=== PATIENT | female | born 1945 | race Caucasian/White ===

== ENCOUNTER 2021-01-06 19:59 | Emergency (ER) | payer OTHER, MEDICARE ==
[~2021-01-06] VITALS: Ht 157.9 cm; Wt 81.6 kg
--- NOTE | 2021-01-06 20:10 | ED Fall/Injury ---
General Stated Complaint: FELL,HIP PAIN Source: patient Exam Limitations: no limitations History of Present Illness Date Seen by Provider: Jan 06, 2021 Time Seen by Provider: 20:06 Initial Comments Healthy 75-year-old female presents by private vehicle with complaint of left posterior hip pain. Patient states she slipped and fell landing on concrete, primarily on her left buttocks. Now having pain and left buttock and hip, worse with movement and having difficulty walking. Denies any history of fracture, no significant past medical history and on no medication. Allergies and Home Medications Allergies Coded Allergies: No Known Drug Allergies (Unverified , 01/06/21) Patient Home Medication List Home Medication List Reviewed: Yes Review of Systems Review of Systems Constitutional: No fever, No malaise, No weakness Respiratory: no symptoms reported Cardiovascular: no symptoms reported Gastrointestinal: no symptoms reported Genitourinary: no symptoms reported Musculoskeletal: see HPI; No back pain; joint pain, muscle pain; No neck pain Skin: No change in color, No rash Psychiatric/Neurological: Denies Numbness, Denies Paresthesia, Denies Weakness Past Wmwtzay-Ykeeto-Bwoxuj Hx Patient Social History Tobacco Use?: No Alcohol Use?: No Physical Exam Vital Signs Vital Signs - First Documented 01/06/21 20:04 Temp 36.2 Pulse 87 Resp 22 B/P (MAP) 159/84 (109) Pulse Ox 97 O2 Delivery Room Air Capillary Refill : Height, Weight, BMI Height: '" Weight: lbs. oz. kg; BMI Method: General Appearance: WD/WN, no apparent distress Back: normal inspection, no CVA tenderness, no vertebral tenderness Extremities: no pedal edema, no calf tenderness, normal capillary refill, other (generalized tenderness left hip and left buttocks) Neurologic/Psychiatric: no motor/sensory deficits, alert, normal mood/affect Skin: normal color, warm/dry Progress/Results/Core Measures Results/Orders Lab Results Laboratory Tests Test 01/06/21 20:48 Range/Units White Blood Count 9.9 4.3-11.0 10^3/uL Red Blood Count 4.93 3.80-5.11 10^6/uL Hemoglobin 14.0 11.5-16.0 g/dL Hematocrit 41 35-52 % Mean Corpuscular Volume 83 80-99 fL Mean Corpuscular Hemoglobin 28 25-34 pg Mean Corpuscular Hemoglobin Concent 34 32-36 g/dL Red Cell Distribution Width 13.2 10.0-14.5 % Platelet Count 229 130-400 10^3/uL Mean Platelet Volume 9.5 9.0-12.2 fL Immature Granulocyte % (Auto) 1 % Neutrophils (%) (Auto) 69 42-75 % Lymphocytes (%) (Auto) 22 12-44 % Monocytes (%) (Auto) 6 0-12 % Eosinophils (%) (Auto) 2 0-10 % Basophils (%) (Auto) 0 0-10 % Neutrophils # (Auto) 6.9 1.8-7.8 X 10^3 Lymphocytes # (Auto) 2.2 1.0-4.0 X 10^3 Monocytes # (Auto) 0.6 0.0-1.0 X 10^3 Eosinophils # (Auto) 0.2 0.0-0.3 10^3/uL Basophils # (Auto) 0.0 0.0-0.1 10^3/uL Immature Granulocyte # (Auto) 0.1 0.0-0.1 10^3/uL Sodium Level 137 135-145 MMOL/L Potassium Level 4.1 3.6-5.0 MMOL/L Chloride Level 102 98-107 MMOL/L Carbon Dioxide Level 22 21-32 MMOL/L Anion Gap 13 5-14 MMOL/L Blood Urea Nitrogen 25 H 7-18 MG/DL Creatinine 1.14 0.60-1.30 MG/DL Estimat Glomerular Filtration Rate 46 BUN/Creatinine Ratio 22 Glucose Level 280 H 70-105 MG/DL Calcium Level 9.6 8.5-10.1 MG/DL Corrected Calcium 9.5 8.5-10.1 MG/DL Total Bilirubin 0.6 0.1-1.0 MG/DL Aspartate Amino Transf (AST/SGOT) 24 5-34 U/L Alanine Aminotransferase (ALT/SGPT) 19 0-55 U/L Alkaline Phosphatase 97 40-136 U/L Total Protein 7.0 6.4-8.2 GM/DL Albumin 4.1 3.2-4.5 GM/DL My Orders Orders - ROVENSTBILLY DOUGLASS DO Pelvis With Left Hip 2-3 View (01/06/21 20:06) Ed Iv/Invasive Line Start (01/06/21 20:37) Cbc With Automated Diff (01/06/21 20:37) Comprehensive Metabolic Panel (01/06/21 20:37) Vital Signs/I&O 01/06/21 20:04 Temp 36.2 Pulse 87 Resp 22 B/P (MAP) 159/84 (109) Pulse Ox 97 O2 Delivery Room Air Progress Progress Note : Progress Note After further questioning (prior to departure) 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 The doctor at that time wanted to put her in the hospital and she declined. Diagnostic Imaging Diagonstic Imaging: Xray Plain Films/CT/US/NM/MRI: pelvis, hip Comments Date of Exam:01/06/21 PELVIS WITH LEFT HIP 2-3 VIEW HISTORY: Fall with left hip pain. TECHNIQUE: Frontal view the pelvis. Frontal and lateral views of the left hip. COMPARISON: None. FINDINGS: There is a mildly impacted, mildly medially displaced subcapital fracture of the left femoral neck. The femoral head is well-seated in the acetabulum. The right hip is unremarkable. No other fracture is seen. IMPRESSION: Mildly impacted and displaced subcapital fracture of the left femoral neck. Dictated on workstation # [id number] Dict: 01/06/212034 Trans: 01/06/212038 [facility] [id number] Interpreted by: YANA MEJIA MD Electronically signed by: Departure Impression Primary Impression: Hip fracture, left Qualified Codes: S72.002A - Fracture of unspecified part of neck of left femur, initial encounter for closed fracture Disposition: XFER SHT-TRM HOSP Condition: Stable Transfer Transfer Reason: Diversion Transfer Progress Notes Tried calling the following hospitals that were all on diversion (2 to no beds): 1. [facility] [place] [facility]. [facility] 3. [facility] 4. [facility] 5. [facility] and spoke to Dr Chester who eventually diverted Called [facility] and Dr Valerio (ER) accepts for transfer to [facility]- ER @ 2130 hrs Transfer Facility: [facility] Method of Transfer: EMS BILLY DAVIES DO Jan 06, 2021 20:10
--- NOTE | 2021-01-06 20:39 | Diagnostic Imaging Report ---
HISTORY: Fall with left hip pain. TECHNIQUE: Frontal view the pelvis. Frontal and lateral views of the left hip. COMPARISON: None. FINDINGS: There is a mildly impacted, mildly medially displaced subcapital fracture of the left femoral neck. The femoral head is well-seated in the acetabulum. The right hip is unremarkable. No other fracture is seen. IMPRESSION: Mildly impacted and displaced subcapital fracture of the left femoral neck. Dictated by: Dictated on workstation # [id number]
[2021-01-06 21:05] LABS: BASOPHILS % (AUTO) 0 % (0-10); EOSINOPHILS # (AUTO) 0.2 10^3/uL (0.0-0.3); EOSINOPHILS % (AUTO) 2 % (0-10); HEMATOCRIT 41 % (35-52); LYMPHOCYTES # (AUTO) 2.2 X 10^3 (1.0-4.0); LYMPHOCYTES % (AUTO) 22 % (12-44); MEAN CORPUSCULAR HEMOGLOBIN 28 pg (25-34); MEAN CORPUSCULAR HGB CONC 34 g/dL (32-36); MEAN CORPUSCULAR VOLUME 83 fL (80-99); MEAN PLATELET VOLUME 9.5 fL (9.0-12.2); MONOCYTES # (AUTO) 0.6 X 10^3 (0.0-1.0); MONOCYTES % (AUTO) 6 % (0-12); NEUTROPHILS # (AUTO) 6.9 X 10^3 (1.8-7.8); NEUTROPHILS % (AUTO) 69 % (42-75); PLATELET COUNT 229 10^3/uL (130-400); WHITE BLOOD COUNT 9.9 10^3/uL (4.3-11.0)
[2021-01-06 21:26] LABS: POTASSIUM 4.1 MMOL/L (3.6-5.0)
[2021-01-06 21:27] LABS: ALBUMIN 4.1 GM/DL (3.2-4.5); BILIRUBIN,TOTAL 0.6 MG/DL (0.1-1.0); CALCIUM 9.6 MG/DL (8.5-10.1); CREATININE SERUM 1.14 MG/DL (0.60-1.30)
[2021-01-06] MEDS ORDERED: morphine INJ 10 MG/ML 1ML (SYR OR VIAL) IVP STA (21:47)
[2021-01-06] MEDS ORDERED: ONDANSETRON 4 MG/2 ML (SDV) Z0FRAN IVP ONE (22:00)
[2021-01-06 22:19] VITALS: BP 176/89
== END 2021-01-06 22:19 | disposition short-term general hospital (02) ==
LOC: ER FS 20:01
DX: S72.012A Unspecified intracapsular fracture of left femur, initial encounter for closed fracture (principal); W01.0XXA Fall on same level from slipping, tripping and stumbling without subsequent striking against object, initial encounter
CPT/HCPCS: 36415; 73502; 80053; 85025; 96374; 96375